=== PATIENT | female | born 1970 | race Caucasian/White ===

== ENCOUNTER → 2020-09-10 | Outpatient (CLI) | payer MEDICAID, SELFPAY ==
[2020-09-13 15:35] LABS: HPV APTIMA, High Risk Negative (Negative)
== END | disposition home or self-care (01) ==
LOC: LABSPEC 16:50
PROVIDERS: Visit Provider Student in an Organized Health Care Education/Training Program
DX: Z12.4 Encounter for screening for malignant neoplasm of cervix (principal)
CPT/HCPCS: 87624; 88175; G0145

== ENCOUNTER → 2020-10-15 15:00 | Outpatient (CLI) | payer MEDICAID, SELFPAY ==
--- NOTE | 2020-10-15 | EMB_PTH ---
PATIENT: RAVINDER AYOUB LOC: [facility] U#:[id number] AGE/SX: 54/F ROOM: RE10/15/[address]: Dr. Vanessa Schwartz, : 1970 BED: DIS: SPEC #: [id number] RECD: 10/15/20 17:07 STATUS: EMA CARLYN #: [id number] DOUG: 10/15/20 00:[address]: Vanessa Schwartz DEPT: SURGICAL PATHOLOGY RECD BY: Simone Henriquez Tissues: Endometrium, NOS Procedures: Surgery Specimen Level IV HEADER OPERATION: Endometrial biopsy PRE-OP DIAGNOSIS: Postmenopausal bleeding TISSUE SUBMITTED: Endometrial biopsy MICROSCOPIC DIAGNOSIS Endometrial biopsy: Strips of benign endometrial epithelium and blood clots, consistent with atrophic endometrium. See comment. NEGRO:ching 10/17/2020 COMMENT Clinical correlation and appropriate follow up are necessary. MICROSCOPIC DESCRIPTION Slides are reviewed. GROSS DESCRIPTION Received in fixative is one container labeled with the patient's name and designated EMB. The specimen consists of multiple fragments of hemorrhagic soft tissue that in aggregate measure 1.5 x 0.5 x 0.1 cm. The specimen is totally submitted in one cassette. / SJ:rg 10/16/20 TC:5 CPT: 00010
== END ==
PROVIDERS: Visit Provider Student in an Organized Health Care Education/Training Program
DX: N95.0 Postmenopausal bleeding (principal)
CPT/HCPCS: 88305

== ENCOUNTER → 2020-11-19 12:18 | Outpatient (CLI) | payer MEDICAID, SELFPAY ==
[2020-10-29 09:18] VITALS: BMI 23.8
--- NOTE | 2020-11-19 12:38 | MRI_ITS ---
HISTORY: pain. TECHNIQUE: Multiplanar and multisequence MR images of the lumbar spine. IV Contrast dosage and agent: None. # of images incl. paperwork: 119. COMPARISON: XR 10/29/2020. FINDINGS: VERTEBRAE: Vertebral body heights maintained. Small bowel L2-L3 vertebral body hemangiomas incidentally noted. Degenerative bone marrow endplate changes at L4-5 and L5-S1. ALIGNMENT: 4 mm anterolisthesis at L4-5. CONUS: Normal morphology and position at L1. SOFT TISSUES: No paraspinal fluid collection. 1 cm left renal cyst. INTERVERTEBRAL DISCS: L1-2: Mild disc bulge and facet arthropathy without significant central canal stenosis or foraminal narrowing. L2-3:No significant posterior disc herniation, central canal stenosis, or foraminal narrowing. L3-4: Mild disc bulge and facet arthropathy without significant central canal stenosis or foraminal narrowing. L4-5: Moderate disc bulge with facet arthritis bilaterally resulting in severe central canal stenosis and mild-moderate bilateral foraminal narrowing with bilateral L4 and L5 nerve root abutment. L5-S1: Mild posterior disc bulge osteophyte complex with facet arthropathy. No significant central canal stenosis or foraminal narrowing. MRI/Spine Lumbar (Routine) IMPRESSION: Mild anterolisthesis of L4-5 with a disc bulge and facet arthropathy resulting in severe spinal canal stenosis and probable nerve root impingement as described above. at 1359 Reported and signed by: Erika Gould MD Electronically Signed: Erika Gould MD at 13:58 EDT Tel , Service support ,
== END ==
PROVIDERS: PCP Family Medicine; Referring Provider Orthopaedic Surgery; Visit Provider Orthopaedic Surgery
DX: M43.10 Spondylolisthesis, site unspecified (principal); M54.5 Low back pain
CPT/HCPCS: 72148